=== PATIENT | female | born 1965 | race Caucasian/White ===

== ENCOUNTER → 2018-10-23 | Day surgery (SDC) | payer BC ==
[~2018-10-23] MED LIST: LIDOCAINE 1% PF 2 ML VIAL. ID PRN; LIDOCAINE 2% PF 5 ML VIAL. ONE; MIDAZOLAM HCL/PF 2 MG/2 ML VIAL. IV PRN; MULT1TAB52 PO; PROPOFOL 40 ML IV ONE; fentaNYL PF VIAL 100 MCG/2 ML VIAL IV PRN
[2018-10-23] MEDS: IV RINGERS,LACTATED 1000ML 1,000 ML IV SCH (08:30)
[2018-10-23 09:32] VITALS: BP 95/68
== END ==
LOC: SURG 08:04
PROVIDERS: ATTEND Internal Medicine Gastroenterology
DX: Z12.11 Encounter for screening for malignant neoplasm of colon (principal); K64.0 First degree hemorrhoids; K63.89 Other specified diseases of intestine; F15.90 Other stimulant use, unspecified, uncomplicated; Z83.71 Family history of colonic polyps; Z72.89 Other problems related to lifestyle
CPT/HCPCS: 45378; J2001; J2704